=== PATIENT | male | born 1950 | race Caucasian/White ===

== ENCOUNTER 2019-09-17 12:28 | Emergency (ER) | payer MEDICARE ==
[~2019-09-17] VITALS: Ht 177.8 cm; Wt 114.0 kg
[2019-09-17] MEDS ORDERED: METF-839 PO (12:35)
[2019-09-17] MEDS ORDERED: CAND16TA7 PO (12:38)
[2019-09-17] MEDS ORDERED: TRIC145T22 PO (12:38)
[2019-09-17] MEDS ORDERED: PROZ40CA PO (12:38)
[2019-09-17] MEDS ORDERED: DIAL800T PO (12:38)
[2019-09-17] MEDS ORDERED: PANT40TA3 PO (12:38)
[2019-09-17] MEDS ORDERED: ASPI81TA85 PO (12:38)
[2019-09-17] MEDS ORDERED: ROSU10TA6 PO (12:38)
[2019-09-17] MEDS ORDERED: VITAMIN B12 SL (12:39)
[2019-09-17] MEDS ORDERED: KETOROLAC 30 MG/ML VIAL (J1885) IV ONE (13:15)
[2019-09-17] MEDS ORDERED: NS 1,000 ML IV ONE (13:15)
[2019-09-17] MEDS ORDERED: ONDANSETRON 4MG/2ML VIAL (J2405) IV ONE (13:15)
--- NOTE | 2019-09-17 13:54 | REP ---
Clinical: Left testicular pain. Technique: Real time logan scale and color evaluation using linear high frequency and curved array transducers. Findings: The right testicle and epididymis are normal in appearance and vascularity. No evidence for torsion, infectious/inflammatory process or mass. Right testicle measures 4.7 x 2.1 x 3.0 cm. A moderate septated right hydrocele is appreciated along with right-sided varicoceles. Left testicle is normal in appearance and vascularity measuring 4.1 x 2.3 x 3.3 cm. No evidence for torsion, infectious/inflammatory process or mass. Left epididymal head cysts are identified measuring up to 5 mm. A moderate left hydrocele is identified. No varicoceles. Impression: 1. Moderate complex right hydrocele and simple left hydrocele. 2. Right-sided varicoceles. 3. Incidental left epididymal head cysts up to 5 mm. Electronically Signed by Mushtaq Bush MD 09/17/2019 01:45 P
[2019-09-17 14:19] LABS: BASO # 0.1 10^3/uL (0.0-0.2); BASO % 0.7 % (0.0-1.0); EOS % 0.4 % (0.0-3.0); HEMOGLOBIN 12.8 g/dl (13.5-17.5); LYMPH # 1.3 10^3/uL (1.5-5.0); LYMPH % 13.6 % (24.0-44.0); MEAN CORPUSCULAR HEMOGLOBIN 29.6 pg (27.0-33.0); MEAN CORPUSCULAR HGB CONC 32.8 g/dl (32.0-36.5); MEAN CORPUSCULAR VOLUME 90.1 fl (80.0-96.0); MONO # 0.7 10^3/uL (0.0-0.8); MONO % 7.7 % (0.0-5.0); NEUTROPHILS # 7.1 10^3/uL (1.5-8.5); NEUTROPHILS % 77.4 % (36.0-66.0); PLATELET COUNT, AUTOMATED 240 10^3/uL (150-450); RED BLOOD COUNT 4.33 10^6/uL (4.30-6.10); WHITE BLOOD COUNT 9.2 10^3/uL (4.0-10.0)
[2019-09-17] MEDS ORDERED: MORPHINE 4 MG/ML 1ML VIAL/SYRINGE (J2270) IV ONE (14:45)
[2019-09-17 14:50] LABS: ALBUMIN 3.9 GM/DL (3.2-5.2); BILIRUBIN,DIRECT 0.1 MG/DL (0.0-0.2); BILIRUBIN,TOTAL 0.3 MG/DL (0.2-1.0); CALCIUM LEVEL 9.4 MG/DL (8.8-10.2); CREATININE FOR GFR 1.51 MG/DL (0.70-1.30); GLOMERULAR FILTRATION RATE 49.5 (>49); POTASSIUM SERUM 4.3 MEQ/L (3.5-5.1)
--- NOTE | 2019-09-17 15:05 | REP ---
Clinical: Left-sided pain. Technique: Axial noncontrast images from the lung bases to the pubic symphysis with coronal and sagittal re-formations. Findings: Acute left-sided obstructive uropathy with a nephric stranding and hydroureteronephrosis is secondary to 6.5 mm calculus at the ureterovesical junction (images 136 - 138). Remainder of the urinary tract system is normal. No further nephrolithiasis noted. Liver, spleen, pancreas, and bilateral adrenal glands are normal. Cholelithiasis suggested without acute cholecystitis. The enteric system is without obstruction or acute inflammatory process. 2.8 cm fat containing periumbilical hernia noted. Pelvis demonstrates age appropriate prostate/seminal vesicles. Small fat containing inguinal hernias identified. No ascites. No free air. No adenopathy. Abdominal aorta without aneurysm or dissection. Musculoskeletal structures demonstrate degenerative changes. Impression: 1. Acute left-sided obstructive uropathy with a 6.5 mm calculus at the ureterovesicle junction. Electronically Signed by Mushtaq Bush MD 09/17/2019 02:56 P
[2019-09-17] MEDS ORDERED: NORC1TAB7 PO (16:13)
[2019-09-17] MEDS ORDERED: FLOM0.4C39 PO (16:13)
[2019-09-17 16:27] VITALS: BP 149/72
--- NOTE | 2019-09-20 14:31 | ED PDOC ---
Post-Departure Follow-Up dr thompson faxed formal report of scrotal us for fu Lukasz Foster MD Sep 20, 2019 14:31
== END 2019-09-17 16:58 | disposition home or self-care (01) ==
LOC: M ED 12:28
DX: N20.1 Calculus of ureter (principal); I86.1 Scrotal varices; N43.3 Hydrocele, unspecified; N50.3 Cyst of epididymis; E11.9 Type 2 diabetes mellitus without complications; I10 Essential (primary) hypertension; E78.5 Hyperlipidemia, unspecified; Z79.82 Long term (current) use of aspirin; Z79.84 Long term (current) use of oral hypoglycemic drugs; Z79.899 Other long term (current) drug therapy
CPT/HCPCS: 74176; 76870; 80048; 80076; 81001; 83690; 85025; 93976; 96361; 96374; 96375; 99284; J1885; J2270; J2405